=== PATIENT | female | born 1985 | race Caucasian/White ===

== ENCOUNTER 2022-03-12 21:06 | Emergency (ER) | payer OTHER, SELFPAY ==
--- NOTE | ~2022-03-12 | XR_ITS ---
XR ankle LT min 3V 03/12/2022 21:58 INDICATION: Left ankle pain PROCEDURE: 4 views left ankle COMPARISON: No prior studies for comparison. FINDINGS: Fracture, dislocation or subluxation is not identified. Ankle mortise intact. Talar dome is normal. The soft tissues appear within normal limits. No foreign bodies are identified. IMPRESSION: 1: NO ACUTE BONE OR JOINT ABNORMALITY IDENTIFIED. Reviewed, dictated and finalized at location A.
--- NOTE | 2022-03-12 21:48 | ED.GENADULT ---
HPI - General Adult General Chief complaint: Unspecified Stated complaint: possible infection in leg Time Seen by Provider: 03/12/22 21:16 History of Present Illness HPI narrative: 36-year-old female with a history of psoriasis and fluid retention presents to the emergency room for evaluation of increased swelling to her right leg, increased redness around her psoriatic plaques, and left ankle pain. Patient states 3 weeks ago she tripped over her dog and rolled her left ankle. Has not had it evaluated by a prior medical provider. Patient also states that she has noticed increased swelling to her lower extremities, was recently evaluated by her primary care physician and he doubled her dose of Lasix. States that she has not noticed any change in the swelling of her lower extremities. Patient also notes increased erythema around her psoriatic plaques on her lower extremities. Related Data Allergies Allergy/AdvReac Type Severity Reaction Status Date / Time latex Allergy Swelling Verified 03/12/22 22:06 Penicillins Allergy Swelling Verified 03/12/22 22:06 Review of Systems Review of Systems: CONSTITUTIONAL: Denies fever, chills, or sweats. EYES: Denies visual changes, redness, or discharge. ENT: Denies rhinorrhea, congestion, sore throat, or otalgia. CARDIOVASCULAR: Denies chest pain, palpitations, or edema. RESPIRATORY: Denies cough or dyspnea. GASTROINTESTINAL: Denies abdominal pain, nausea, vomiting, or diarrhea. GENITOURINARY: Denies dysuria or hematuria. SKIN: Reports pruritic lesions on lower extremities, elbows, and abdomen MUSCULOSKELETAL: Reports left ankle pain NEUROLOGIC: Denies headache, numbness, dizziness, or weakness. PSYCHIATRIC: Denies anxiety or depression. Exam Narrative: GENERAL: Well-appearing, well-nourished, no physical limitations, and in no acute distress. HEAD: Normocephalic, atraumatic. EYES: Conjunctivae normal, PERRLA and EOMI. NECK: Supple. No adenopathy or masses. CHEST: Clear to auscultation. No respiratory distress. No wheezes rales or rhonchi. No tenderness. HEART: Regular rate and rhythm. No murmur heard. Normal peripheral pulses. EXTREMITIES: Left ankle: Tenderness over the lateral malleolus and anterior talus SKIN: Confluent scaly patches/plaques with surrounding erythema to the anterior lower extremities, anterior trunk, and elbows NEURO: No focal deficits. Alert and oriented x3. CHEMATIMOTHY. CN's II-XI intact bilaterally, normal gait PSYCH: Cooperative. Normal mood and affect. Course Vital Signs Vital signs: Vital Signs Temperature 36.6 C 03/12/22 21:54 Pulse Rate 93 03/12/22 21:54 Respiratory Rate 18 03/12/22 21:54 Blood Pressure 169/95 H 03/12/22 21:54 Pulse Oximetry 98 03/12/22 21:54 Oxygen Delivery Room Air 03/12/22 21:54 Temperature 36.6 C 03/12/22 21:54 Pulse Rate 93 03/12/22 21:54 Respiratory Rate 18 03/12/22 21:54 Blood Pressure 169/95 H 03/12/22 21:54 Pulse Oximetry 98 03/12/22 21:54 Oxygen Delivery Room Air 03/12/22 21:54 Medical Decision Making Vital Signs Vital Signs: Vital Signs Temperature 36.6 C 03/12/22 21:54 Pulse Rate 93 03/12/22 21:54 Respiratory Rate 18 03/12/22 21:54 Blood Pressure 169/95 H 03/12/22 21:54 Pulse Oximetry 98 03/12/22 21:54 Oxygen Delivery Room Air 03/12/22 21:54 Temperature 36.6 C 03/12/22 21:54 Pulse Rate 93 03/12/22 21:54 Respiratory Rate 18 03/12/22 21:54 Blood Pressure 169/95 H 03/12/22 21:54 Pulse Oximetry 98 03/12/22 21:54 Oxygen Delivery Room Air 03/12/22 21:54 Lab Data Result diagrams: 03/12/22 22:03 03/12/22 22:03 Labs: Lab Results 03/12/22 03/12/22 03/12/22 Range/Units 22:03 22:03 22:03 WBC 8.7 (4.5-10.0) K/mm3 RBC 4.73 (4.2-5.4) M/mm3 Hgb 13.9 (12.0-15.0) g/dL Hct 44.1 (37.0-47.0) % MCV 93.2 (80-100) fl MCH 29.4 (26-34) pg MCHC 31.5 L (32-36) g/dl RDW 14.6 H (11.
[2022-03-12 21:54] VITALS: BP 169/95; PULSE 93; RESP 18; TEMP 36.6; O2SAT 98
[2022-03-12 22:11] LABS: Basophils Percent Auto 0.3 % (0.2-1.2); Eosinophils Absolute Auto 0.2 K/mm3 (0-0.3); Eosinophils Percent Auto 2.7 % (0-4.4); Hematocrit 44.1 % (37.0-47.0); Hemoglobin 13.9 g/dL (12.0-15.0); Immature Granulocyte Absolute 0.01 K/mm3 (0.00-0.031); Immature Granulocyte Percent A 0.1 % (0-0.5); Lymphocytes Absolute Auto 2.07 K/mm3 (0.9-3.2); Lymphocytes Percent Auto 23.7 % (18.3-44.2); Mean Corpuscular HGB Conc 31.5 g/dl (32-36); Mean Corpuscular Hemoglobin 29.4 pg (26-34); Mean Corpuscular Volume 93.2 fl (80-100); Mean Platelet Volume 11.6 fl (7.4-10.4); Monocytes Absolute Auto 0.4 K/mm3 (0.1-0.6); Neutrophils Percent Auto 69.2 % (45.5-73.1); Platelet Count Result 166 k/mm3 (150-375); Red Blood Count 4.73 M/mm3 (4.2-5.4); Red Cell Distribution Width 14.6 % (11.5-14.5); White Blood Count 8.7 K/mm3 (4.5-10.0)
[2022-03-12 22:27] LABS: Alanine Aminotransferase 35 U/L (6-35); Albumin Level 4.3 g/dL (3.5-5.1); Alkaline Phosphatase 92 U/L (38-126); Anion Gap 9 mmol/L (8-16); Aspartate Amino Transferase 33 U/L (14-36); Bilirubin,Total 0.7 mg/dL (0.2-1.3); Blood Urea Nitrogen 10 mg/dL (7-17); Calcium 8.9 mg/dL (8.4-10.2); Carbon Dioxide 28 mmol/L (22-30); Chloride 103 mmol/L (98-107); Estimated Glomerular Filt Rate > 60; Glucose 103 mg/dL (65-110); Potassium 3.5 mmol/L (3.4-5.0); Sodium 140 mmol/L (137-145)
[2022-03-12 22:36] LABS: NT Pro B Type Natriuretic Pept 160 pg/mL (5-100)
[2022-03-12 23:53] LABS: Hemoglobin A1C 5.6 % (<5.7)
== END 2022-03-13 00:15 | disposition home or self-care (01) ==
PROVIDERS: Emergency Provider Nurse Practitioner Family
DX: L40.9 Psoriasis, unspecified (principal); R60.0 Localized edema; Z13.1 Encounter for screening for diabetes mellitus; Z13.29 Encounter for screening for other suspected endocrine disorder
CPT/HCPCS: 36415; 73610; 80053; 83036; 83880; 84443; 85025; 85380; 99283